=== PATIENT | female | born 1975 | race African-American/Black ===

== ENCOUNTER 2019-04-02 23:49 | Emergency (ER) | payer OTHER ==
--- NOTE | 2019-04-03 00:14 | PDOC ---
History of Present Illness - General Chief Complaint: Pain Stated Complaint: ABD/PAIN/MENSTRUAL EVALUATION Time Seen by Provider: 04/03/19 00:13 History Source: Patient - History of Present Illness Initial Comments: Ms. Martínez is a 43 y/o F with hx uterine polyps (removal 2012), HTN presenting with 7 day history of increased menstrual bleeding, and two days of L sided abdominal pain. She reports that her menstrual period began 8 days ago on tuesday, and that it was heavier than normal. She reports soaking through 6-7 pads per day from Tuesday to Tuesday. She reports that the bleeding appeared to stop, but that yesterday she again began having menstrual bleeding, now passing large clots. She reports that the pain began 8 days ago, and steadily worsened until reaching 8/10 pain today. She reports that the pain is localized to her L abdomen, describes it as an ache, and reports that it has been constant since onset. She reports that she is not on any control. She reports taking her HCTZ and Losartan this morning. She denies any headache, changes in vision, confusion, palpitations, dizziness, vertigo. Past History - Past Medical History Allergies/Adverse Reactions: Allergies Allergy/AdvReac Type Severity Reaction Status Date / Time Sulfa (Sulfonamide Allergy Verified 04/03/19 03:04 Antibiotics) Home Medications: Ambulatory Orders Cholecalciferol (Vitamin D3) [Vitamin D3 -] 1,000 unit PO WEEKLY 04/03/19 Lisinopril/Hydrochlorothiazide [Lisinopril-Hctz 10-12.5 mg Tab] 1 each PO DAILY 04/03/19 Review of Systems - Review of Systems Able to Perform ROS?: Yes Comments:: ROS: GENERAL/CONSTITUTIONAL: No fever or chills. No weakness. HEAD, EYES, EARS, NOSE AND THROAT: No change in vision. No ear pain or discharge. No sore throat. CARDIOVASCULAR: No chest pain or shortness of breath RESPIRATORY: No cough, wheezing, or hemoptysis. GASTROINTESTINAL: No nausea, vomiting, diarrhea or constipation. GENITOURINARY: No dysuria, frequency, or change in urination. MUSCULOSKELETAL: No joint or muscle swelling or pain. No neck or back pain. SKIN: No rash NEUROLOGIC: No headache, vertigo, loss of consciousness, or change in strength/ sensation. ENDOCRINE: No increased thirst. No abnormal weight change HEMATOLOGIC/LYMPHATIC: No anemia, easy bleeding, or history of blood clots. ALLERGIC/IMMUNOLOGIC: No hives or skin allergy. *Physical Exam - Physical Exam Comments: PE: GENERAL: Awake, alert, and fully oriented, grimacing slightly holding abdomen. HEAD: No signs of trauma, normocephalic, atraumatic EYES: PERRLA, EOMI, sclera anicteric, conjunctiva clear ENT: Auricles normal inspection, hearing grossly normal, nares patent, oropharynx clear without exudates. Moist mucosa NECK: Normal ROM, supple, no lymphadenopathy, JVD, or masses LUNGS: No distress, speaks full sentences, clear to auscultation bilaterally HEART: Regular rate and rhythm, normal S1 and S2, no murmurs, rubs or gallops, peripheral pulses normal and equal bilaterally. ABDOMEN: LLQ, LUQ tenderness. Soft, normoactive bowel sounds. No guarding, no rebound. No masses EXTREMITIES : Normal inspection, Normal range of motion, no edema. No clubbing or cyanosis. NEUROLOGICAL: Cranial nerves II through XII grossly intact. Normal speech, normal gait, no focal sensorimotor deficits SKIN: Warm, Dry, normal turgor, no rashes or lesions noted ED Treatment Course - LABORATORY CBC & Chemistry Diagram: 04/03/19 02:20 04/03/19 03:31 Medical Decision Making - Medical Decision Making 43 y/o F with hx uterine polyps p/w increased menstrual bleeding with abdominal pain, most consistent with uterine fibroids. Differential also includes PID, ruptured ovarian cyst, ectopic . Ovarian torsion possible but less likely given lack of N/V. Plan: CBC CMP Serum Transvaginal ultrasound Pelvic exam Ofirmev 1000 mg for pain control Repeat BP as initial in triage was elevated Dispo: Pending labs, imaging --- Patient brought to ultrasound --- CBC resulted - Hg 10.6, no leukocytosis Serum negative On reassessment, pain well controlled with ofirmev --- Ultrasound notable for fibroid uterus. Discussed results with patient. She reports that her manager clinical applications (Dr. Marquis) is located in [place] where she normally lives. She reports being in [place] for a few months but will return to [place] in April. Plan for local manager clinical applications referral. She refuses pelvic exam. Plan for discharge home with manager clinical applications follow up pending CMP result and BP re- assessment. --- CMP hemolyzed, new order placed. --- CMP - wnl BP - 147/87 Plan for discharge home with manager clinical applications follow up. *DC/Admit/Observation/Transfer Diagnosis at time of Disposition: Fibroid uterus Qualifiers: Uterine leiomyoma location: unspecified location Qualified Code(s): D25.9 - Leiomyoma of uterus, unspecified - Discharge Dispostion Disposition: HOME Condition at time of disposition: Improved Decision to Admit order: No - Referrals Referrals: Gabrielle Schofield MD [Staff Physician] - - Patient Instructions Printed Discharge Instructions: DI for Uterine Fibroids Additional Instructions: You were seen in the Emergency Department for abdominal pain and vaginal bleeding. We found fibroids on your ultrasound that are likely responsible for your bleeding and pain. Please follow up with your manager clinical applications doctor as soon as possible to evaluate further and to weigh your options for managing the fibroids. We are giving you a referral to an manager clinical applications doctor here if you are unable to see your regular manager clinical applications in [place]. Please return to the emergency department if you develop fevers, sharp worsening pain with vomiting. - Post Discharge Activity
[2019-04-03 00:41] VITALS: BMI 40.7
--- NOTE | 2019-04-03 01:10 | PDOC ---
Attending Attestation - Resident Resident Name: LiliaMino abraham - ED Attending Attestation I have performed the following: I have examined & evaluated the patient, The case was reviewed & discussed with the resident, I agree w/resident's findings & plan - HPI HPI: 04/03/19 01:05 43 YOF with h/o endometrial polyps, HTN x 2 days of left sided achy abdominal pain, +vaginal bleeding and passage of clots. has h/o irregular/heavy periods, more heavy bleeding with her current menses. she is saturating 6-7 pads per day LMP began 1 week ago no f/c, n/v/d, urinary sx, freq/urgency/dysuria. 04/03/19 01:09 - Physicial Exam PE: 04/03/19 01:08 Agree with the resident's HPI and PE as documented in the electronic medical record. NAD, well appearing, EOMI, PERRL, MMM, nl conjunctiva, anicteric; neck supple. lungs clear, RRR, abdomen soft nontender, obese. Back nontender. TYSON x4, no focal neuro deficits. No peripheral edema. normal color for ethnicity, WWP. 04/03/19 04:15 - Medical Decision Making 04/03/19 01:08 hpi as documented VS reviewed, +hypertensive, but also in pain Vital Signs Temp Pulse Resp BP Pulse Ox 98.0 F 86 19 198/96 H 100 04/02/19 23:50 04/02/19 23:50 04/02/19 23:50 04/02/19 23:50 04/02/19 23:50 DDx female abdominal pain/VB: ovarian cyst, ovarian torsion, TOA, appy, UTI, pyelonephritis, STD/PID, Mittelschmerz, anemia, electrolyte/metabolic derangements, DUB VS with more hypertension, no tachy or hypoxia/respiratory distress. abdomen benign on reeval and no peritoneal findings, no VB here, controlled TVUS fibroid uterus, otherwise unremarkable. labs unremarkable. H/H with chronic anemia instructions on iron supplements. pain controlled. abdomen soft, nontender, no peritoneal findings. repeat VS improved, downtrending, known h/o HTN. Dispo: [facility] followup, bleeding precautions; return to ED if persistent and heavy vaginal bleeding, persistent pelvic pain not relieved by your prescribed medications, dizziness, shortness of breath, new and persistent fevers, other foul smelling discolored vaginal discharge, or for any other concerns. 04/03/19 01:09 04/03/19 03:25 04/03/19 04:15 04/03/19 04:16
[2019-04-03] MEDS ORDERED: ACETAMINOPHEN 1000 MG/100 ML VIAL (NON FORMULARY) IVPB ONE (01:13)
[2019-04-03] MEDS ORDERED: ACETAMINOPHEN INJECTION 100 ML IVPB ONE (02:00)
[2019-04-03 02:41] LABS: BASO % 1.6 % (0-2.0); EOS % 2.3 % (0-4.5); HEMATOCRIT 31.7 % (32.4-45.2); HEMOGLOBIN 10.6 GM/dL (10.7-15.3); LYMPH % 31.1 % (8-40); MCH 25.5 pg (25.7-33.7); MCHC 33.5 g/dl (32.0-36.0); MEAN CELL VOLUME 76.1 fl (80-96); MEAN PLT VOLUME 7.6 fl (7.5-11.1); MONO % 6.1 % (3.8-10.2); NEUT % 58.9 % (42.8-82.8); PLATELET COUNT 366 K/MM3 (134-434); RBC 4.17 M/mm3 (3.60-5.2); RDW 18.1 % (11.6-15.6); WHITE BLOOD COUNT 6.3 K/mm3 (4.0-10.0)
[2019-04-03 04:01] LABS: ALBUMIN 3.3 g/dl (3.4-5.0); BILIRUBIN,TOTAL 0.3 mg/dL (0.2-1); BLOOD UREA NITROGEN 7.4 mg/dL (7-18); CALCIUM 8.6 mg/dL (8.5-10.1); CREATININE 0.8 mg/dL (0.55-1.3); POTASSIUM 4.9 mmol/L (3.5-5.1); TOT PROT 6.5 g/dl (6.4-8.2)
[2019-04-03 04:14] VITALS: BP 147/87; PULSE 66; TEMP 98.7
== END 2019-04-03 04:21 | disposition home or self-care (01) ==
LOC: JER 23:49
PROC: 3E033NZ Introduction of Analgesics, Hypnotics, Sedatives into Peripheral Vein, Percutaneous Approach (ICD-10-PCS; principal; 2019-04-02)
DX: D25.9 Leiomyoma of uterus, unspecified (principal)
CPT/HCPCS: 36415; 76830-TC; 80053; 84703; 85025; 99282-25; J0131

== ENCOUNTER 2021-07-06 14:51 | Emergency (ER) | payer SELFPAY ==
[2021-07-06 15:04] VITALS: PULSE 84; TEMP 98.2; BMI 39.4
[2021-07-06 16:08] VITALS: BP 153/70
== END 2021-07-06 16:19 | disposition home or self-care (01) ==
LOC: JER 14:51
DX: R03.0 Elevated blood-pressure reading, without diagnosis of hypertension (principal)
CPT/HCPCS: 99281-25

== ENCOUNTER 2022-03-03 17:16 | Emergency (ER) | payer OTHER ==
[2022-03-03 17:39] VITALS: BP 147/83; PULSE 73; RESP 18; TEMP 98.1; BMI 40.5
[2022-03-03] MEDS ORDERED: KETOROLAC TROMETHAMINE 30 MG/1 ML VIAL IVPUSH ONE (19:09)
[2022-03-03] MEDS ORDERED: KETOROLAC TROMETHAMINE 30 MG/1 ML VIAL ONE (19:27)
[2022-03-03 19:59] LABS: PH,URINE 6.5 (5.0-8.0); URINE APPEARANCE CLEAR; URINE BILIRUBIN NEGATIVE (NEGATIVE); URINE COLOR YELLOW; URINE GLUCOSE (UA) NEGATIVE (NEGATIVE); URINE KETONE NEGATIVE (NEGATIVE); URINE LEUK ESTERASE NEGATIVE (NEGATIVE); URINE NITRITE NEGATIVE (NEGATIVE); URINE PROTEIN NEGATIVE (NEGATIVE)
[2022-03-03 20:16] LABS: BASO % 1.2 % (0-2.0); EOS % 1.7 % (0-4.5); HEMATOCRIT 41.7 % (32.4-45.2); HEMOGLOBIN 13.9 GM/dL (10.7-15.3); LYMPH % 33.2 % (8-40); MCH 27.1 pg (25.7-33.7); MCHC 33.4 g/dl (32.0-36.0); MEAN CELL VOLUME 81.2 fl (80-96); MEAN PLT VOLUME 8.2 fl (7.5-11.1); MONO % 8.1 % (3.8-10.2); NEUT % 55.8 % (42.8-82.8); RBC 5.14 M/mm3 (3.60-5.2); RDW 15.3 % (11.6-15.6); WHITE BLOOD COUNT 9.9 K/mm3 (4.0-10.0)
[2022-03-03 20:39] LABS: ALBUMIN 3.8 g/dl (3.4-5.0); CALCIUM 9.5 mg/dL (8.5-10.1)
[2022-03-03 20:40] LABS: BLOOD UREA NITROGEN 18.8 mg/dL (7-18)
[2022-03-03 20:44] LABS: TOT PROT 7.9 g/dl (6.4-8.2)
[2022-03-03 20:45] LABS: BILIRUBIN,TOTAL 0.4 mg/dL (0.2-1)
[2022-03-03 20:52] LABS: PLATELET COUNT 340 10^3/uL (134-434)
== END 2022-03-04 01:08 | disposition home or self-care (01) ==
LOC: JER 17:16
PROC: 3E033GC Introduction of Other Therapeutic Substance into Peripheral Vein, Percutaneous Approach (ICD-10-PCS; principal; 2022-03-03)
DX: K80.20 Calculus of gallbladder without cholecystitis without obstruction (principal); D25.9 Leiomyoma of uterus, unspecified
CPT/HCPCS: 36415; 74177-TC; 80053; 81003; 84132; 84703; 85025; 87086; 99285-25; Q9967

== ENCOUNTER 2022-09-26 04:31 | Emergency (ER) | payer OTHER ==
[2022-09-26 04:51] VITALS: BP 126/85; PULSE 91; RESP 16; TEMP 98.2; BMI 43.4
== END 2022-09-26 06:24 | disposition left against medical advice (07) ==
LOC: JER 04:31
DX: R10.13 Epigastric pain (principal)
CPT/HCPCS: 99283-25

== ENCOUNTER 2022-11-12 02:06 | Emergency (ER) | payer OTHER ==
[2022-11-12 02:19] VITALS: BMI 44.2
[2022-11-12 05:01] LABS: EOS % 3.6 % (0-4.5); HEMATOCRIT 39.4 % (32.4-45.2); HEMOGLOBIN 13.3 GM/dL (10.7-15.3); LYMPH % 30.6 % (8-40); MCH 27.3 pg (25.7-33.7); MCHC 33.7 g/dl (32.0-36.0); MEAN CELL VOLUME 81.1 fl (80-96); MONO % 7.1 % (3.8-10.2); NEUT % 57.7 % (42.8-82.8); PLATELET COUNT 287 10^3/uL (134-434); RBC 4.86 M/mm3 (3.60-5.2); RDW 14.3 % (11.6-15.6); WHITE BLOOD COUNT 6.6 K/mm3 (4.0-10.0)
[2022-11-12 05:17] LABS: ALBUMIN 3.4 g/dl (3.4-5.0); BLOOD UREA NITROGEN 14.9 mg/dL (7-18); CALCIUM 9.8 mg/dL (8.5-10.1)
[2022-11-12 05:20] LABS: CREATININE 0.9 mg/dL (0.55-1.3)
[2022-11-12 05:22] LABS: BILIRUBIN,TOTAL 0.2 mg/dL (0.2-1)
[2022-11-12 05:25] LABS: N-TERMINAL BNP 40.5 pg/ml (5-125)
[2022-11-12 11:38] LABS: URINE APPEARANCE CLEAR; URINE COLOR YELLOW
[2022-11-12 11:39] LABS: PH,URINE 6.5 (5.0-8.0); URINE BILIRUBIN NEGATIVE (NEGATIVE); URINE GLUCOSE (UA) NEGATIVE (NEGATIVE); URINE KETONE NEGATIVE (NEGATIVE); URINE LEUK ESTERASE NEGATIVE (NEGATIVE); URINE NITRITE NEGATIVE (NEGATIVE); URINE PROTEIN NEGATIVE (NEGATIVE); URINE UROBILINOGEN 0.2 mg/dL (0.2-1.0)
[2022-11-12 13:06] VITALS: BP 153/91; PULSE 80; RESP 18; TEMP 97
== END 2022-11-12 13:02 | disposition home or self-care (01) ==
LOC: JER 02:06
DX: R10.84 Generalized abdominal pain (principal)
CPT/HCPCS: 36415; 74177-TC; 80053; 81003; 83605; 83690; 83880; 84443; 84484; 84703; 85025; 93970-TC; 99285-25; Q9967